=== PATIENT | female | born 1960 | race Caucasian/White ===

== ENCOUNTER 2024-03-18 13:45 | Outpatient (CLI) | payer BC, SELFPAY ==
--- NOTE | ~2024-03-18 | MM_ITS ---
EXAMINATION: MM screening reji BI w kaycee HISTORY: Screening TECHNIQUE: Craniocaudal and mediolateral oblique 3-D tomosynthesis images were obtained and synthetic 2-D images were generated. CAD analysis was submitted and interpreted. COMPARISON: No prior mammogram is available for comparison at this institution. BREAST PARENCHYMAL COMPOSITION: Not Dense: The breasts are almost entirely fatty. FINDINGS: There is no evidence of suspicious mass, calcification, or architectural distortion to sugg est malignancy in either breast. There has been no suspicious interval change. IMPRESSION: 1. No mammographic evidence of malignancy. 2. Recommend routine screening mammography in one year. BI-RADS Category 1: Negative Reviewed, dictated and finalized at location B. [facility]ACHINE
== END 2024-03-18 13:46 | disposition home or self-care (01) ==
DX: Z12.31 Encounter for screening mammogram for malignant neoplasm of breast (principal)
CPT/HCPCS: 77063; 77067

== ENCOUNTER 2024-10-16 10:16 | Outpatient (CLI) | payer BC, SELFPAY ==
--- NOTE | ~2024-10-16 | XR_ITS ---
EXAM/ PROCEDURE: XR lumbar spine 2-3V - 10/16/2024 10:52 CDT HISTORY: 64 years old Female with Radiculopathy, lumbar region COMPARISON: None available TECHNIQUE: Three view(s) FINDINGS/ IMPRESSION: There are no fractures or dislocations.Multilevel degenerative changes are seen. Reviewed, dictated and finalized at location A.
--- NOTE | ~2024-10-16 | XR_ITS ---
EXAM/ PROCEDURE: XR pelvis 1-2V - 10/16/2024 10:52 CDT HISTORY: 64 years old Female with Radiculopathy, lumbar region COMPARISON: None available TECHNIQUE: One view(s) FINDINGS/ IMPRESSION: There are no fractures or dislocations.Joint spaces are within normal limits. Reviewed, dictated and finalized at location A.
== END 2024-10-16 10:17 | disposition home or self-care (01) ==
LOC: MICIMG 10:18
PROVIDERS: PCP Nurse Practitioner; Visit Provider Nurse Practitioner Family
DX: M54.16 Radiculopathy, lumbar region (principal)
CPT/HCPCS: 72100; 72170

== ENCOUNTER 2024-10-21 11:45 | Outpatient (CLI) | payer BC, SELFPAY ==
--- NOTE | ~2024-10-21 | MR_ITS ---
EXAMINATION: MR lumbar spine wo con DATE: 10/21/2024 12:17 INDICATION: Lumbago TECHNIQUE: Magnetic resonance imaging (MRI) of the lumbar spine was performed without intravenous con trast. Sequences included sagittal T2-weighted FSE, sagittal T2-weighted FS FSE, sagittal T1-weighted FSE, and axial T2-weighted FSE. COMPARISON: None FINDINGS: 2 mm retrolisthesis L5 on S1. 8 degree lumbar levocurvature. Vertebral body heights are normal. Norm al marrow signal. Mild disc height loss at 10-11 and T11-T12 with mild disc bulges resulting in negli gible central canal stenosis at these levels. Mild right-sided disc height loss at L2-L3 through L4-L 5. Mild disc height loss at L5-S1 with superimposed annular fissure and central to left foraminal zon e disc extrusion with disc material extending up to 8 mm caudal to the level of the superior endplate of S1. The conus medullaris terminates at T12-L1. There is normal signal in the caudal spinal cord. Paravertebral soft tissues are unremarkable. The following disc levels are specifically discussed: T12-L1: Very small left paracentral disc protrusion. There is moderate bilateral facet joint osteoart hritis. There is no neural foraminal stenosis. There is no central canal stenosis. L1-L2: Disc is minimally bulging. There is altered left and moderate right facet joint osteoarthritis . There is mild bilateral neural foraminal stenosis. There is no central canal stenosis. L2-L3: Disc is mildly bulging. There is are bilateral facet joint osteoarthritis. There is mild bilat eral neural foraminal stenosis. There is mild central canal stenosis. L3-L4: Small bilateral foraminal zone disc protrusions. There is hypertrophy of the ligamentum flavum . There is moderate left and moderate to severe right facet joint osteoarthritis. There is mild bilat eral neural foraminal stenosis. There is mild central canal stenosis. L4-L5: Disc is bulging. There is right and moderate to severe left facet joint osteoarthritis. There is moderate bilateral neural foraminal stenosis. There is mild central canal stenosis. L5-S1: Disc is mildly bulging with superimposed annular fissure and left central to foraminal zone di sc extrusion which significantly narrows the left lateral recess exerting mass effect upon the dana sing left S1 nerve root. There is moderate bilateral facet joint osteoarthritis. There is mild right and moderate left neural foraminal stenosis. There is mild central canal stenosis. IMPRESSION: 1. . Lumbar levocurvature with mild lumbar and lower thoracic spondylosis. This most notable for alvina lar fissure and prominent disc extrusion at L5-S1 which exerts mass effect upon the traversing left S 1 nerve root. Correlate clinically for muscle weakness of plantar flexion, sensory change of the late ral foot and small toe, and depressed ankle reflex. Reviewed, dictated and finalized at location B. IMPRESSION: 1. . Lumbar levocurvature with mild lumbar and lower thoracic spondylosis. This most notable for annular fissure and prominent disc extrusion at L5-S1 which e xerts mass effect upon the traversing left S1 nerve root. Correlate clinically for muscle weakness of plantar flexion, sensory change of the lateral foot and small toe, and depressed ankle reflex.
== END 2024-10-21 11:46 | disposition home or self-care (01) ==
PROVIDERS: PCP Nurse Practitioner; Visit Provider Nurse Practitioner Family
DX: M47.896 Other spondylosis, lumbar region (principal); M47.894 Other spondylosis, thoracic region
CPT/HCPCS: 72148